=== PATIENT | female | born 1960 | race Asian ===

== ENCOUNTER 2017-12-17 11:52 | Outpatient (CLI) | payer OTHER | END 2017-12-17 11:53 | disposition home or self-care (01) | LOC: DI.N 11:52 | PROVIDERS: ATTEND Radiology Diagnostic Radiology | DX: Z12.31 Encounter for screening mammogram for malignant neoplasm of breast (principal) | CPT/HCPCS: 77067 ==

== ENCOUNTER 2018-02-20 11:47 | Emergency (ER) | payer OTHER ==
--- NOTE | 2018-02-20 13:15 | ED Physician Documentation ---
PD HPI HEENT - Stated complaint Stated Complaint: OFF BALANCE/TROUBLE SPEAKING/FATIGUE - Chief complaint Chief Complaint: General - History obtained from History obtained from: Patient - History of Present Illness Timing - onset: How many hours ago (2 hours ago, at about 9:30 am, patient was just moving around normally in house and felt onset of lightheadedness, some element of dizziness but she describes it more as lightheaded. She sat and then her noted that she was somnolent, had to touch at her to rouse her, and she seemed confused. This lasted a minute or so and then she seemed to improve. Feeling mostly better but still with slight feeling of general weakness.), Today Timing - duration: Minutes Timing - details: Abrupt onset, Now resolved Worsens: Position Associated symptoms: No: Fever, Congestion, Rhinorrhea, Headache, Cough Similar symptoms before: Has not had sx before Recently seen: Not recently seen Review of Systems Constitutional: denies: Fever, Chills, Myalgias Nose: denies: Rhinorrhea / runny nose, Congestion Throat: denies: Sore throat Cardiac: denies: Chest pain / pressure, Palpitations Respiratory: denies: Dyspnea, Cough GI: reports: Nausea (some nausea at the time.). denies: Abdominal Pain, Vomiting, Diarrhea : denies: Dysuria, Frequency Skin: denies: Rash, Lesions Neurologic: reports: Generalized weakness, Near syncope (just this episode today). denies: Focal weakness, Numbness, Confused, Altered mental status, Headache, Head injury Endocrine: denies: Weight loss PD PAST MEDICAL HISTORY - Past Medical History Past Medical History: Yes Cardiovascular: None Neuro: None Endocrine/Autoimmune: HyPOthyroidism - Past Surgical History Past Surgical History: No - Allergies Allergies/Adverse Reactions: Allergies Allergy/AdvReac Type Severity Reaction Status Date / Time codeine Allergy Emesis Verified 02/20/18 11:57 Penicillins Allergy Rash Verified 02/20/18 11:57 - Living Situation Living Situation: reports: With spouse/s.o. Living Arrangement: reports: At home - Social History Does the pt smoke?: No Smoking Status: Never smoker Does the pt drink ETOH?: Yes Does the pt have substance abuse?: No - Immunizations Immunizations are current?: Yes - POLST Patient has POLST: No PD ED PE NORMAL - Vitals Vital signs reviewed: Yes - General General: Alert and oriented X 3, No acute distress, Well developed/nourished - HEENT HEENT: Atraumatic, PERRL, EOMI, Ears normal, Pharynx benign - Neck Neck: Supple, no meningeal sign, No adenopathy, No bruit - Cardiac Cardiac: RRR, No murmur - Respiratory Respiratory: Clear bilaterally - Abdomen Abdomen: Soft, Non tender - Back Back: No CVA TTP - Derm Derm: Normal color, Warm and dry - Extremities Extremities: No deformity, No tenderness to palpate, Normal ROM s pain, No edema, No calf tenderness / cord - Neuro Neuro: Alert and oriented X 3, gang head saw operator 2-12 intact, No motor deficit, No sensory deficit, Normal speech Eye Opening: Spontaneous Motor: Obeys Commands Verbal: Oriented GCS Score: 15 Results - Vitals Vitals: Vital Signs - 24 hr 02/20/18 11:53 Temperature 35.4 C L Heart Rate 81 Respiratory 18 Rate Blood Pressure 103/59 L O2 Saturation 96 Oxygen O2 Source Room air - EKG (time done) 13:51 Rate: Rate (enter#) (68) Rhythm: NSR [place]: Normal Intervals: Normal OK Ischemia: Normal ST segments. No: ST elevation c/w ischemia, ST depression - Rads (name of study) head CT Radiology: Prelim report reviewed (normal) head and neck angio Radiology: Prelim report reviewed (normal vascular) PD MEDICAL DECISION MAKING - ED course Complexity details: reviewed results, considered differential (sounds more like near syncope rather than CVA. However hard to tell and so did head CT/CTA and this is normal. I discussed with them that I think near syncope. Did not pursue further workup for neurovascular. ), d/w patient Departure - Departure Disposition: 01 Home, Self Care Clinical Impression: Near syncope Altered mental status Qualifiers: Altered mental status type: transient alteration of awareness Qualified Code(s): R40.4 - Transient alteration of awareness Condition: Stable Record reviewed to determine appropriate education?: Yes Instructions: ED Near Syncope Unkn Follow-Up: ISIDRO HINSON PA-C [Primary Care Provider] - Comments: This sounds likely to have been a near fainting episode given the symptoms described. Could consider potentially a TIA though sounds less like that. You could take a baby aspirin daily. Follow-up with your primary care next week for recheck. Return if recurrent symptoms. Discharge Date/Time: 02/20/18 18:07
[2018-02-20] MEDS ORDERED: SODIUM CHLORIDE 0.9% 1,000 ML IV ONE (13:42)
[2018-02-20] MEDS ORDERED: IOPAMIDOL-300 100 ML VIAL ONE (14:04)
[2018-02-20 14:22] LABS: BASOPHILS # (AUTO) 0.1 10^3/uL (0.0-0.1); EOSINOPHILS % (AUTO) 0.8 %; HGB - HEMOGLOBIN 13.2 g/dL (12.0-16.0); LYMPHOCYTES # (AUTO) 1.3 10^3/uL (1.5-3.5); LYMPHOCYTES % (AUTO) 21.3 %; MEAN CORPUSCULAR HEMOGLOBIN 32.6 pg (27.0-31.0); MEAN CORPUSCULAR HGB CONC 34.4 g/dL (32.0-36.0); MEAN CORPUSCULAR VOLUME 94.7 fL (81.0-99.0); MEAN PLATELET VOLUME 8.8 fL (7.9-10.8); MONOCYTES # (AUTO) 0.3 10^3/uL (0.0-1.0); MONOCYTES % (AUTO) 4.5 %; NEUTROPHILS # (AUTO) 4.4 10^3/uL (1.5-6.6); NEUTROPHILS % (AUTO) 72.4 %; PLT - PLATELET COUNT 235 10^3/uL (130-450); RED BLOOD COUNT 4.06 10^6/uL (4.20-5.40); RED CELL DISTRIBUTION WIDTH 12.8 % (12.0-15.0); WHITE BLOOD COUNT 6.1 x10^3/uL (4.8-10.8)
[2018-02-20 14:40] LABS: ALBUMIN 4.2 g/dL (3.2-5.5); ALBUMIN/GLOBULIN RATIO 1.4 (1.0-2.2); BILIRUBIN,TOTAL 0.5 mg/dL (0.2-1.0); CALCIUM 9.3 mg/dL (8.5-10.3); CREATININE 0.8 mg/dL (0.4-1.0); MAGNESIUM 2.1 mg/dL (1.7-2.8); TOTAL PROTEIN 7.1 g/dL (6.7-8.2)
[2018-02-20] MEDS ORDERED: MAG HYDROX/AL HYDROX/SIMETH 30 ML UDC PO STA (14:48)
--- NOTE | 2018-02-20 16:58 | CT Report ---
Reason: altered mentation for 10-15 minutes this morning Procedure Date: 02/20/2018 Accession Number: [id number] / [id number] Procedure: CT - Head W/O CPT Code: FULL RESULT: EXAM: CT HEAD EXAM DATE: 02/20/2018 03:53 PM. CLINICAL HISTORY: Altered mentation for 10-15 minutes this morning. Brief confusion and ataxia today. COMPARISON: HEAD ANGIO 02/20/2018 3:53 PM HEAD W/O 02/20/2018 3:53 PM. TECHNIQUE: Multiaxial CT images were obtained from the foramen magnum to the vertex. Reformats: Sagittal and coronal. IV contrast: None. In accordance with CT protocol optimization, one or more of the following dose reduction techniques were utilized for this exam: automated exposure control, adjustment of mA and/or KV based on patient size, or use of iterative reconstructive technique. FINDINGS: Parenchyma: No intraparenchymal hemorrhage. No evidence of mass, midline shift, or CT findings of infarction. Castellanos-white differentiation is distinct. Mild bilateral physiologic basal ganglia calcifications. Extraaxial Spaces: Normal for age. No subdural or epidural collections identified. Ventricles: Normal in size and position. Sinuses and Orbits: Mild right ethmoid sinus mucosal thickening. No acute findings. Bones: No evidence of fracture or calvarial defect. IMPRESSION: No acute intracranial abnormality seen. RADIA
--- NOTE | 2018-02-20 17:04 | CT Report ---
Reason: brief confusion/ataxia today Procedure Date: 02/20/2018 Accession Number: [id number] / [id number] Procedure: CT - Head Angio CPT Code: FULL RESULT: EXAM: CT ANGIOGRAM HEAD. CT SCAN OF THE HEAD WITH CONTRAST. EXAM DATE: 02/20/2018 03:54 PM CLINICAL HISTORY: 57-year-old woman with transient confusion and ataxia today. COMPARISON: HEAD W/O 02/20/2018 3:53 PM. TECHNIQUE: - CT Scan Head: Using a multidetector scanner, axial images were acquired from the foramen magnum to the skull vertex following contrast administration. - CT Angiogram: Using a multidetector scanner, high-resolution axial images were acquired from the skull base through vertex following rapid infusion of intravenous contrast. Reformats: Multiplanar MIP reformats were reconstructed. Nascet criteria used for stenosis measurement. IV Contrast: ISOVUE 300 80mL. In accordance with CT protocol optimization, one or more of the following dose reduction techniques were utilized for this exam: automated exposure control, adjustment of mA and/or KV based on patient size, or use of iterative reconstructive technique. FINDINGS: CTA HEAD: RIGHT: - Visualized Internal Carotid: Patent without significant stenosis or aneurysm. - Anterior Cerebral: Patent without significant stenosis or aneurysm. There is an azygos A2 segment, a normal variant. - Middle Cerebral: Patent without significant stenosis or aneurysm. - Posterior Cerebral: Patent without significant stenosis or aneurysm. The artery is primarily supplied by the posterior communicating artery, but there is a small, patent P1 segment. - Posterior Communicating: Patent. No aneurysm. - Visualized Vertebral: Patent without significant stenosis or dissection. LEFT: - Visualized Internal Carotid: Patent without significant stenosis or aneurysm. - Anterior Cerebral: Patent without significant stenosis or aneurysm. There is an azygos A2 segment, a normal variant. - Middle Cerebral: Patent without significant stenosis or aneurysm. - Posterior Cerebral: Patent without significant stenosis or aneurysm. The artery is primarily supplied by the posterior communicating artery, but there is a small, patent P1 segment. - Posterior Communicating: Patent. No aneurysm. - Visualized Vertebral: Patent without significant stenosis or dissection. CENTRAL: - Anterior Communicating: Patent. No aneurysm. - Basilar: Patent without significant stenosis, dissection, or aneurysm. Dural Venous Sinuses and Major Central Veins: Patent. POSTCONTRAST HEAD: No abnormal enhancement. Please see earlier noncontrast exam dictation for complete description of noncontrast findings. IMPRESSION: 1. Normal CTA of the head. No large vessel occlusion, significant vascular stenosis, or aneurysm. RADIA
--- NOTE | 2018-02-20 17:07 | CT Report ---
Reason: brief ataxia/confusion today Procedure Date: 02/20/2018 Accession Number: [id number] / [id number] Procedure: CT - Neck Angio CPT Code: FULL RESULT: EXAM: CT ANGIOGRAM NECK EXAM DATE: 02/20/2018 04:35 PM. CLINICAL HISTORY: 57-year-old woman with transient confusion and ataxia today. COMPARISON: None. TECHNIQUE: Routine axial helical imaging was performed from the skull base through the aortic arch. Reconstructions: Routine multiplanar 3D MIP reconstructions. IV Contrast: ISOVUE 300 80mL. Evaluation of arterial stenosis is based on a NASCET method of measurement. In accordance with CT protocol optimization, one or more of the following dose reduction techniques were utilized for this exam: automated exposure control, adjustment of mA and/or KV based on patient size, or use of iterative reconstructive technique. FINDINGS: RIGHT: - Common and Internal Carotid: Patent without signficant stenosis. There is mild calcified atherosclerotic plaque at the bifurcation and along the siphon. Stenosis by NASCET criteria: 0%. No evidence of dissection. No evidence of aneurysm along intracranial ICA. - External Carotid: Unremarkable. - Vertebral: Patent without significant stenosis. No evidence of dissection. LEFT: - Common and Internal Carotid: Patent without signficant stenosis. There is mild calcified atherosclerotic plaque at the bifurcation and along the siphon. Stenosis by NASCET criteria: 0%. No evidence of dissection. No evidence of aneurysm along intracranial ICA. - External Carotid: Unremarkable. - Vertebral: Patent without significant stenosis. No evidence of dissection. SOFT TISSUES AND BONES: Visualized soft tissues are unremarkable. Lung apices are clear. No evidence of acute fracture or malalignment of the cervical spine. IMPRESSION: 1. Normal CTA of the neck. Carotid and vertebral arteries are patent without significant stenosis, atherosclerotic disease, or dissection. RADIA
[2018-02-20 18:06] VITALS: BP 105/62
[2018-02-23] MEDS ORDERED: IOPAMIDOL-300 100 ML VIAL IVP ONE (11:23)
== END 2018-02-20 18:07 | disposition home or self-care (01) ==
LOC: ED 11:47
DX: R55 Syncope and collapse (principal); R40.4 Transient alteration of awareness; E03.9 Hypothyroidism, unspecified
CPT/HCPCS: 36415; 70450; 70496; 70498; 80053; 83690; 83735; 84484; 85025; 85651; 93005; 96360; 99283; 99284; A9270; Q9967

== ENCOUNTER 2020-01-26 10:48 | Outpatient (CLI) | payer OTHER ==
--- NOTE | 2020-01-27 07:56 | Mammography Report ---
BILATERAL DIGITAL SCREENING MAMMOGRAM 3D/2D WITH AUGMENTATION: 01/26/2020 CLINICAL: Routine screening. Comparison is made to exams dated: 01/21/2019 mammogram - [facility], 12/17/2017 mammogr am - [facility], 11/28/2016 mammogram, and 11/20/2015 mammogram - [facility]. The tissue of both breasts is predominantly fatty. No significant masses, calcifications, or other findings are seen in either breast. There has been no significant interval change. IMPRESSION: NEGATIVE There is no mammographic evidence of malignancy. A 1 year screening mammogram is recommended. This exam was interpreted at Station ID: [id number]. NOTE: For mammograms, a report in lay terms will be sent to the patient. Approximately 15% of breast malignancies will not be visualized mammographically. In the management of a palpable breast mass, a negative mammogram must not discourage biopsy of a clinically suspicious lesion. Electronically Signed By: Freddie Mckeon M.D., jr/dagoberto:01/26/2020 14:23:33 ACR BI-RADS Category 1: Negative 3341F PARENCHYMAL PATTERN: (F) - The breast(s) demonstrate(s) diffuse fatty replacement. BI-RADS CATEGORY: (1) - 1 RECOMMENDATION: (ANNUAL) - Recommend routine annual screening mammography. [id number] 1 year screening LATERALITY: (B)
== END 2020-01-26 10:49 | disposition home or self-care (01) ==
LOC: DI.N 10:48
DX: Z12.31 Encounter for screening mammogram for malignant neoplasm of breast (principal)
CPT/HCPCS: 77063; 77067